=== PATIENT | male | born 1985 | race Caucasian/White ===

== ENCOUNTER 2018-10-29 12:37 | Emergency (ER) | payer SELFPAY, OTHER ==
[2018-10-29] MEDS: FENTAnyl 50 MCG/ML VIAL IV (13:00)
[2018-10-29] MEDS: morphine 10 MG INJ IV (13:50)
[2018-10-29] MEDS: ONDANSETRON 4 MG INJ IV (13:50)
== END 2018-10-29 15:15 | disposition home or self-care (01) ==
LOC: E/R 12:37
DX: S42.294A Other nondisplaced fracture of upper end of right humerus, initial encounter for closed fracture (principal); W01.0XXA Fall on same level from slipping, tripping and stumbling without subsequent striking against object, initial encounter; Y92.009 Unspecified place in unspecified non-institutional (private) residence as the place of occurrence of the external cause
CPT/HCPCS: 73000; 73030-RT; 96374; 96375; 99284-25